=== PATIENT | female | born 1985 | race Caucasian/White ===

== ENCOUNTER 2016-10-06 07:18 | Inpatient (IN) | payer BC ==
[2016-10-06] MEDS ORDERED: CARBOPROST TROMETHAMINE 250 MCG/ML 1 ML AMP IM PRN (08:31)
[2016-10-06] MEDS ORDERED: LIDOCAINE 1% (PF) 10 MG/ML (30 ML SDV) SQ PRN (08:31)
[2016-10-06] MEDS ORDERED: TERBUTALINE 1 MG/ML VIAL SQ PRN (08:31)
[2016-10-06] MEDS ORDERED: OXYTOCIN 10 UNIT/ML 1 ML VIAL IM PRN (08:31)
[2016-10-06] MEDS ORDERED: METHYLERGONOVINE 0.2 MG/ML 1 ML AMP IM PRN (08:31)
[2016-10-06] MEDS ORDERED: BUTORPHANOL 1 MG/ML 1 ML VIAL IV PRN (08:35)
--- NOTE | 2016-10-06 08:42 | P.HPOB ---
History of Present Illness H&P Date: 10/06/16 Chief Complaint: 38-5/7 weeks, spontaneous rupture of membranes The patient is a 30-year-old 1 para 0 admitted at 38-5/7 weeks as established by last menstrual period and confirmed by seven-week ultrasound. She is admitted with documented spontaneous rupture of membranes of clear fluid and all signs reassuring. She currently feels only mild cramping and no significant contractions. Her has been uncomplicated. She does have a history of one nonfunctioning kidney for which she follows with nephrology and has had normal laboratory testing throughout the . She is also known to be rubella nonimmune. Group B strep status is negative. Obstetrical history 1 para 0 with current statistics listed above. EDC of 10/15/2016 was established by last menstrual period and confirmed by seven-week ultrasound. Laboratory workup demonstrates a blood type of O+ with a negative antibody screen. Rubella status is nonimmune. Remainder of the laboratory workup was within normal limits. Second trimester Glucola was elevated but followed up with a normal three-hour glucose tolerance test group B strep status is negative. Gynecologic history is unremarkable with no history of any infections to include STDs. Review of Systems Review of systems is confined to history of present illness. Past Medical History History of Any Multi-Drug Resistant Organisms: None Reported Smoking Status: Never smoker Medications and Allergies Home Medications Medication Instructions Recorded Confirmed Type Pnv with Ca,No.72/Iron/FA 1 each PO DAILY 07/18/16 10/06/16 History [ Plus Tablet] Ferrous Sulfate [Slow Fe] 1 tab PO WEEKLY 10/06/16 10/06/16 History Allergies Allergy/AdvReac Type Severity Reaction Status Date / Time No Known Allergies Allergy Verified 10/06/16 08:11 Exam - Vital Signs Vital signs: Intake and Output 10/05/16 10/06/16 10/06/16 22:59 06:59 14:59 Other: Weight 91.172 kg Patient Weight 10/07/16 06:59 Weight 91.172 kg In general, this is a well-developed, well-nourished white female in no acute distress. Her heart has a regular rhythm and rate without murmur. Her lungs are clear to auscultation bilaterally in all salas. Her abdomen is gravid, nondistended, has normal active bowel sounds, is soft, nontender, and without any palpable masses aside from the uterine fundus. Her extremities are without any cyanosis, clubbing, or significant edema and are nontender to palpation bilaterally. Digital cervical examination performed by the nursing staff demonstrates her cervix to be only fingertip dilated, approximately 70% effaced , with the vertex in presentation at -3 station. Bedside ultrasound confirms vertex presentation. Assessment and Plan (1) Spontaneous rupture of amniotic membranes Status: Acute (2) Rubella non-immune status, antepartum Status: Acute Plan: The patient is admitted for active management of labor. She has requested to wait for Pitocin augmentation as her parents are in route from their home in [place]. Have discussed with she and her that should no contractions commenced within the next 1-2 hours, she should be augmented with Pitocin. She will continue to have close maternal and surveillance and expectant management will be practiced. She is a good candidate for either IV or epidural analgesia, whichever she may choose.
[2016-10-06] MEDS: LACTATED RINGERS 1,000 ML IV SCH ×4 (09:00→21:59)
[2016-10-06 09:13] LABS: Basophils % (A) 0 %; Eosinophils # (A) 0.1 k/uL (0-0.7); Eosinophils % (A) 1 %; HCT 40.8 % (34.0-46.0); HDW 2.69; HGB 14.1 gm/dL (11.4-16.0); Luc # (Auto) 0.21; Luc % (Auto) 2; Lymphocytes # (A) 1.6 k/uL (1.0-4.8); Lymphocytes % (A) 16 %; MCH 31.6 pg (25.0-35.0); MCHC 34.5 g/dL (31.0-37.0); MCV 91.8 fL (80.0-100.0); Mean Platelet Volume 9.9; Monocytes # (A) 0.4 k/uL (0-1.0); Monocytes % (A) 4 %; Neutrophils # (A) 7.6 k/uL (1.3-7.7); Neutrophils % (A) 77 %; RBC 4.45 m/uL (3.80-5.40); RDW 13.6 % (11.5-15.5); WBC 9.9 k/uL (3.8-10.6); WBC (Perox) 10.18
[2016-10-06] MEDS: OXYTOCIN 30 UNITS/500 ML NS 30 UNIT in SALINE 1 500ML.BAG IV SCH (10:40)
[2016-10-06 11:21] VITALS: BMI 32.4
[2016-10-06] MEDS ORDERED: PENICILLIN G POTASSIUM 5,000,000 UNIT in DEXTROSE 5% IN WATER 100 ML IV STA ×2 (17:41)
[2016-10-06] MEDS ORDERED: BUPIVACAINE (PF) 0.25% 30 ML VIAL ONE (18:22)
[2016-10-06] MEDS ORDERED: SODIUM CHLORIDE 0.9% 100 ML BAG ONE (18:22)
[2016-10-06] MEDS ORDERED: fentaNYL (PF) 50 MCG/ML 5 ML AMP ONE (18:22)
[2016-10-07] MEDS ORDERED: ACETAMINOPHEN TAB 325 MG TAB PO PRN (00:25)
[2016-10-07] MEDS ORDERED: HYDROCORTISONE 2.5% RECTAL CREAM 30 GM TUBE RECTAL PRN (00:25)
[2016-10-07] MEDS ORDERED: diphenhydrAMINE 50 MG/ML 1 ML VIAL IVP PRN ×2 (00:25)
[2016-10-07] MEDS ORDERED: diphenhydrAMINE 50 MG CAP PO PRN (00:25)
[2016-10-07] MEDS ORDERED: Acetaminophen-Codeine 300-30mg TAB PO PRN (00:25)
[2016-10-07] MEDS ORDERED: LANOLIN CREAM 5 GM TUBE TOPICAL PRN (00:25)
[2016-10-07] MEDS ORDERED: SIMETHICONE 80 MG CHEWABLE PO PRN (00:25)
[2016-10-07] MEDS ORDERED: diphenhydrAMINE 25 MG CAP PO PRN (00:25)
[2016-10-07] MEDS ORDERED: ZOLPIDEM 5 MG TAB PO PRN (00:25)
[2016-10-07] MEDS ORDERED: BENZOCAINE/MENTHOL SPRAY 1 GM/SPRAY AEROSOL TOPICAL PRN (00:25)
[2016-10-07] MEDS ORDERED: WITCH HAZEL 1 EACH MED..PAD TOPICAL PRN (00:25)
--- NOTE | 2016-10-07 00:25 | P.PROBDLV ---
Vaginal Delivery Note - . Vaginal Delivery Note: Findings: Female in the direct occiput anterior position with Apgars of 9 at 1 minute and 10 at 5 minutes. Weight pending. True knot in the umbilical cord. Intact, three-vessel cord placenta. EBL 150 mL's. Delivery summary: This is a 30-year-old 1 para 0 woman who presented at 38-5/7 weeks gestation with premature rupture of membranes. Following admission Pitocin induction of labor was initiated. She had rupture of membranes at approximately 5:30 AM on 10/06/2016. She had a prolonged latent phase of labor however did on eventually become active. She received an epidural anesthetic. She reached 9 cm at approximately 8 PM. She reached complete cervical dilation by approximately 9 PM and commenced pushing. She had intermittent deep variable and late decelerations throughout the second stage. She did have good return to baseline and good variability throughout. As she was making consistent progress she was allowed to continue pushing. When she did reach she was repositioned, prepped and draped in the dorsal lithotomy position. The perineum was infused with lidocaine. With additional maternal effort the head delivered from the direct occiput anterior position. The nose and mouth were bulb suctioned on the perineum. The anterior followed by the posterior shoulders were then delivered without difficulty and the rest of the infant was delivered onto the field. A true knot was noted in the umbilical cord. The infant was placed on the maternal abdomen and the nose and mouth were further bulb suctioned. Apgars were 9 at 1 minute and 10 at 5 minutes. Weight is pending. The perineum was inspected and a small second-degree perineal laceration was noted. This was repaired with 3- 0 Vicryl suture in the usual fashion. The cord was clamped and cut and an intact, three-vessel cord placenta was delivered after an approximately 13 minute third stage of labor. The vagina was reinspected and no further lacerations were noted. The uterus was massaged and was noted to be firm at the level of the umbilicus. EBL was approximately 150 mL's. The patient received Pitocin following delivery of the placenta. All counts were correct. Both mother and were doing well post delivery in the room.
[2016-10-07 08:16] LABS: Basophils % (A) 0 %; CH 31.9; Eosinophils % (A) 0 %; HCT 39.2 % (34.0-46.0); HDW 2.43; HGB 13.2 gm/dL (11.4-16.0); Luc # (Auto) 0.25; Luc % (Auto) 1; Lymphocytes # (A) 1.7 k/uL (1.0-4.8); Lymphocytes % (A) 9 %; MCH 31.8 pg (25.0-35.0); MCHC 33.8 g/dL (31.0-37.0); MCV 94.2 fL (80.0-100.0); Mean Platelet Volume 9.9; Monocytes # (A) 0.9 k/uL (0-1.0); Monocytes % (A) 4 %; Neutrophils # (A) 17.2 k/uL (1.3-7.7); Neutrophils % (A) 86 %; RBC 4.16 m/uL (3.80-5.40); RDW 13.9 % (11.5-15.5); WBC 20.1 k/uL (3.8-10.6); WBC (Perox) 20.65
[2016-10-07] MEDS: IBUPROFEN 600 MG TAB PO PRN ×2 (09:19→16:07)
[2016-10-07] MEDS: SENNOSIDES-DOCUSATE SODIUM 1 EACH TAB PO SCH ×2 (09:19→20:43)
[2016-10-07] MEDS ORDERED: MEASLES-MUMPS-RUBELLA VACC/PF 12,500 UNIT/0.5 ML VIAL SQ ONE (15:39)
[2016-10-07] MEDS: LACTATED RINGERS 1,000 ML IV SCH (21:52)
[2016-10-07] MEDS: OXYTOCIN 30 UNITS/500 ML NS 30 UNIT in SALINE 1 500ML.BAG IV SCH (21:52)
[2016-10-08] MEDS: IBUPROFEN 600 MG TAB PO PRN ×2 (03:04→15:51)
[2016-10-08 05:58] VITALS: RESP 16
[2016-10-08] MEDS: PENICILLIN G POTASSIUM 2,500,000 UNIT in DEXTROSE 5% IN WATER 100 ML IV SCH ×4 (06:04→06:05)
--- NOTE | 2016-10-08 08:10 | P.PN ---
Subjective Principal diagnosis: day #1. Left well. Moderate lochia rubra. Pain well controlled. Objective - Vital Signs Vital signs: Vital Signs Temp 98.0 F 10/08/16 00:00 Pulse 63 10/08/16 00:00 Resp 16 10/08/16 00:00 BP 102/58 10/08/16 00:00 Pulse Ox Intake & Output 10/07/16 10/08/16 10/08/16 18:59 06:59 18:59 Intake Total 240 Output Total 1000 Balance -760 Intake: Oral 240 Output: Urine 1000 Other: Voiding Method Toilet # Voids 1 2 - Constitutional General appearance: Present: average body habitus, cooperative - EENT Eyes: Present: PERRLA ENT: Present: hearing grossly normal - Neck Thyroid: bilateral: normal size - Respiratory Respiratory: bilateral: CTA - Cardiovascular Rhythm: regular - Gastrointestinal General gastrointestinal: Present: normal bowel sounds - Integumentary Integumentary: Present: normal - Neurologic Neurologic: Present: CNII-XII intact, focal deficits - Musculoskeletal Musculoskeletal: Present: gait normal, strength equal bilaterally - Psychiatric Psychiatric: Present: A&O x's 3, appropriate affect, intact judgment & insight - Labs CBC & Chem 7: 10/07/16 07:25 Labs: Abnormal Lab Results - Last 24 Hours (Table) 10/07/16 Range/Units 07:25 WBC 20.1 H (3.8-10.6) k/uL Neutrophils # 17.2 H (1.3-7.7) k/uL Assessment and Plan Plan: Patient may continue care today likely discharge home tomorrow morning. Time with Patient: Less than 30
[2016-10-09] MEDS: IBUPROFEN 600 MG TAB PO PRN (01:50)
[2016-10-09 09:02] VITALS: BP 115/78; PULSE 66; TEMP 98.3
[2016-10-09] MEDS: SENNOSIDES-DOCUSATE SODIUM 1 EACH TAB PO SCH (09:11)
--- NOTE | 2016-10-09 10:10 | P.DS ---
Providers Date of admission: 10/06/16 08:30 Expected date of discharge: 10/09/16 Attending physician: Osiel Palafox [facility] Hospital Course: This is a 29-year-old white female 1 para 0 EDC 10/15/2016 at 38-5/7 weeks' gestation. Patient presented to the hospital with spontaneous amniorrhexis, clear fluid. Her was essentially unremarkable, rubella status nonimmune. Group B strep cultures were negative. Patient's past medical history is significant for only one functioning kidney. Please see dictated history and physical for details. Patient was admitted, she went on to deliver a liveborn female with scores of 9 and 10 at one and 5 minutes respectively. This was a vaginal delivery, second-degree perineal laceration was easily repaired, estimated blood loss 150 mL's. weighed 6 lbs. 12 oz. or 3050 g. Please see dictated delivery summary for details. This morning the patient and her baby are both doing well. She is voiding, ambulating and passing flatus without difficulty. Vital signs are stable and she is afebrile. Physical exam is normal, breast-feeding is going well, perineal body is clean and dry. Extremities are negative for edema. Fundus is firm and in the midline, symmetric, 18 week size. There is scant lochia rubra. Patient is being discharged home today in very good condition. She will follow- up in the office with Dr. Palafox in 6 weeks. I have asked her to call the office with any fevers shakes or chills, foul smelling or copious lochia, with the passage of large blood clots, with any pain not alleviated by over-the- counter ibuprofen products, or indeed with any concerns. She and her are contemplating her options for contraception and we'll discuss this further in the office. Baby will follow up with team physician as recommended. Meruvax has been received prior to discharge. Patient Condition at Discharge: Good Plan - Discharge Summary Discharge Medication List Pnv with Ca,No.72/Iron/FA [ Plus Tablet] 1 each PO DAILY 07/18/16 [ History] Ferrous Sulfate [Slow Fe] 1 tab PO WEEKLY 10/06/16 [History] Follow up Appointment(s)/Referral(s): Osiel Palafox MD [STAFF PHYSICIAN] - 6 Weeks Discharge Disposition: HOME SELF-CARE
== END 2016-10-09 13:20 | disposition home or self-care (01) | DRG 775 ==
LOC: FBPOP 07:18 → 4FBP 08:30
PROVIDERS: ADMIT Obstetrics & Gynecology; ATTEND Obstetrics & Gynecology
PROC: 3E033VJ Introduction of Other Hormone into Peripheral Vein, Percutaneous Approach (ICD-10-PCS; principal; 2016-10-06)
PROC: 0KQM0ZZ Repair Perineum Muscle, Open Approach (ICD-10-PCS; 2016-10-07)
PROC: 00HU33Z Insertion of Infusion Device into Spinal Canal, Percutaneous Approach (ICD-10-PCS; 2016-10-07)
PROC: 10E0XZZ Delivery of Products of Conception, External Approach (ICD-10-PCS; 2016-10-07)
PROC: 3E0R3CZ (ICD-10-PCS; 2016-10-07)
DX: O42.92 Full-term premature rupture of membranes, unspecified as to length of time between rupture and onset of labor (principal); O76 Abnormality in fetal heart rate and rhythm complicating labor and delivery; Z37.0 Single live birth; O63.0 Prolonged first stage (of labor); O70.1 Second degree perineal laceration during delivery; Z3A.38 38 weeks gestation of pregnancy; O69.2XX0 Labor and delivery complicated by other cord entanglement, with compression, not applicable or unspecified
CPT/HCPCS: 59025; 84112; 85025; 88307; 90707; 99213

== ENCOUNTER → 2018-05-02 | Outpatient (CLI) | payer BC ==
[2018-05-02 14:00] LABS: Appearance,Urine Clear (Clear); Bacteria,Urine Rare /hpf; Bilirubin,Urine Negative (Negative); Blood,Urine Trace (Negative); Color,Urine Yellow; Glucose,Urine (UA) Negative (Negative); Ketones,Urine 1+ (Negative); Leukocyte Esterase,Urine Negative (Negative); Mucus,Urine Rare /hpf; Nitrite,Urine Negative (Negative); PH, Urine 5.5 (5.0-8.0); Protein,Urine Negative (Negative); RBC,Urine 1 /hpf (0-5); Specific Gravity,Urine 1.018 (1.001-1.035); Squamous Epithelial Cell,Urine 2 /hpf (0-4); Urobilinogen,Urine <2.0 mg/dL (<2.0); WBC,Urine <1 /hpf (0-5)
[2018-05-02 14:10] LABS: HGB 13.2 gm/dL (11.4-16.0); MCH 31.2 pg (25.0-35.0); MCHC 33.8 g/dL (31.0-37.0); MCV 92.5 fL (80.0-100.0); Mean Platelet Volume 8.5; Platelet Count 221 k/uL (150-450); RBC 4.22 m/uL (3.80-5.40); RDW 12.6 % (11.5-15.5); WBC 10.1 k/uL (3.8-10.6)
[2018-05-02 18:48] LABS: Albumin 3.9 g/dL (3.80-4.90); Albumin/Globulin Ratio 1.63 (1.20-2.10); Anion Gap 8.3 mmol/L (4.00-12.00); Calcium 9.2 mg/dL (8.7-10.3); Carbon Dioxide 22.7 mmol/L (21.6-31.8); Globulin 2.4 g/dL (2.1-3.7); Phosphorus 3.7 mg/dL (2.4-5.1); Potassium 3.8 mmol/L (3.5-5.5); Total Bilirubin 0.2 mg/dL (0.3-1.2); Total Protein 6.3 g/dL (6.2-8.2)
== END ==
LOC: LABWHC1 13:07
PROVIDERS: ATTEND Internal Medicine Nephrology
DX: D64.9 Anemia, unspecified (principal); N39.0 Urinary tract infection, site not specified; E83.39 Other disorders of phosphorus metabolism
CPT/HCPCS: 36415; 80053; 81001; 84100; 85027

== ENCOUNTER 2018-08-03 14:42 | Outpatient (CLI) | payer BC ==
[2018-08-03 15:36] LABS: Appearance,Urine Clear (Clear); Bacteria,Urine Rare /hpf; Bilirubin,Urine Negative (Negative); Blood,Urine Negative (Negative); Color,Urine Yellow; Glucose,Urine (UA) Negative (Negative); Ketones,Urine Negative (Negative); Leukocyte Esterase,Urine Moderate (Negative); Mucus,Urine Occasional /hpf; Nitrite,Urine Negative (Negative); Protein,Urine Trace (Negative); RBC,Urine 2 /hpf (0-5); Squamous Epithelial Cell,Urine 4 /hpf (0-4); Urobilinogen,Urine <2.0 mg/dL (<2.0); WBC,Urine 3 /hpf (0-5)
[2018-08-03 16:24] LABS: Basophils % (A) 0 %; Eosinophils # (A) 0.1 k/uL (0-0.7); Eosinophils % (A) 1 %; HCT 40.7 % (34.0-46.0); HGB 13.1 gm/dL (11.4-16.0); Lymphocytes # (A) 1.3 k/uL (1.0-4.8); Lymphocytes % (A) 12 %; MCH 30.1 pg (25.0-35.0); MCHC 32.3 g/dL (31.0-37.0); MCV 93.3 fL (80.0-100.0); Mean Platelet Volume 8.1; Monocytes # (A) 0.5 k/uL (0-1.0); Monocytes % (A) 5 %; Neutrophils # (A) 8.6 k/uL (1.3-7.7); Neutrophils % (A) 81 %; Platelet Count 210 k/uL (150-450); RBC 4.36 m/uL (3.80-5.40); RDW 13.3 % (11.5-15.5); WBC 10.6 k/uL (3.8-10.6)
[2018-08-03 16:38] LABS: ALT 26 U/L (9-52); AST 17 U/L (14-36); Blood Urea Nitrogen 9 mg/dL (7-17); LDH 303 U/L (313-618); Uric Acid 5.5 mg/dL (3.7-7.4)
[2018-08-03 17:52] VITALS: BP 117/70; PULSE 90; RESP 16; TEMP 97.7
--- NOTE | 2018-08-07 08:45 | P.MSEPDOC ---
Presenting Problems - Arrival Data Date of Arrival on Unit: 08/03/18 Time of Arrival on Unit: 14:50 Mode of Transport: Ambulatory - Complaint OB-Reason for Admission/Chief Complaint: Pain, Other Comment: pain in upper rt quad. / diahrea all day. no vomiting but nauseated. able to keep water down Medical History - Information : 2 Para: 1 Term: 1 : 0 Abortions: Spontaneous or Elective: 0 Number of Living Children: 1 - Gestational Age Gestational Age by SHERRIE (wks/days): 29 Weeks and 6 Days Review of Systems - Review of Systems Constitutional: No problems Breast: No problems ENT: Nasal congestion Cardiovascular: No problems Respiratory: No problems Gastrointestinal: Diarrhea Genitourinary: No problems Musculoskeletal: No problems Neurological: No problems Skin: No problems Comment: taking sudifed for allergys. has cough last 2 days. Vital Signs - Temperature Temperature: 97.7 F Temperature Source: Temporal Artery Scan - Pulse Right Apical Pulse Rate: 90 Pulse Assessment Method: Automatic Cuff - Respirations Respiratory Rate: 16 Oxygen Delivery Method: Room Air - Blood Pressure Right Arm Blood Pressure: 117/70 Blood Pressure Mean: 85 Blood Pressure Source: Automatic Cuff Medical Screen Scoring (Pre) - Cervical Exam Dilation: Exam Deferred - Uterine Contractions Frequency: N/A - Maternal Vital Signs Maternal Temperature: N/A Signs of Preeclampsia: N/A - Pain Assessment Pain Location and Character: Right, Upper, Abdomen Pain Scale Used: Numeric (1 - 10) Pain Intensity: 5 Pain Description: *Acute, Cramping Pain Frequency: Intermittent Pain Duration: 4 Pain Duration Units: Hours Pain Behavior: Vocalization Pain Aggravating Factors: Activity - Total Score Total Score (Pre): 0 Physician Notification (Pre) - Physician Notified Physician Notified Date: 08/03/18 Physician Notified Time: 15:29 Physician/Practitioner Notifed:: ro Spoke With: dr starr New Order Received: Yes - Notification Comment Comment: lab work and monitoring Disposition - Disposition OB Disposition: Discharge to home, Written follow up instructions reviewed Discharge Date: 08/03/18 Discharge Time: 17:30 I agree with the RN Medical Screening Exam: Yes Risk & Benefit of care provided described in d/c instruction: Yes Diagnosis: 29 WEEKS GESTATION OF
== END 2018-08-03 17:30 | disposition home or self-care (01) ==
LOC: FBPOP 14:42
PROVIDERS: ATTEND Obstetrics & Gynecology
DX: O26.893 Other specified pregnancy related conditions, third trimester (principal); R10.11 Right upper quadrant pain; Z3A.29 29 weeks gestation of pregnancy
CPT/HCPCS: 59025; 81001; 82565; 83615; 84450; 84460; 84520; 84550; 85025; 99213

== ENCOUNTER 2018-10-04 08:07 | Inpatient (IN) | payer BC ==
[2018-10-04] MEDS ORDERED: LIDOCAINE 0.5% (PF) 5 MG/ML (50 ML SDV) SQ PRN (08:52)
[2018-10-04] MEDS ORDERED: METHYLERGONOVINE 0.2 MG/ML 1 ML AMP IM PRN (08:52)
[2018-10-04] MEDS ORDERED: TERBUTALINE 1 MG/ML VIAL SQ PRN (08:52)
[2018-10-04] MEDS ORDERED: OXYTOCIN 10 UNIT/ML 1 ML VIAL IM PRN (08:52)
[2018-10-04] MEDS ORDERED: CARBOPROST TROMETHAMINE 250 MCG/ML 1 ML AMP IM PRN (08:52)
[2018-10-04] MEDS ORDERED: BUTORPHANOL 1 MG/ML 1 ML VIAL IV PRN (08:53)
[2018-10-04] MEDS ORDERED: LACTATED RINGERS 1,000 ML IV SCH (09:00)
[2018-10-04] MEDS ORDERED: OXYTOCIN 30 UNITS/500 ML NS 30 UNIT in SALINE 1 500ML.BAG IV SCH (09:00)
[2018-10-04] MEDS: LACTATED RINGERS 1,000 ML IV SCH ×2 (09:38→13:33)
[2018-10-04 09:48] VITALS: RESP 16; BMI 32.5
[2018-10-04 09:56] LABS: Basophils % (A) 0 %; Eosinophils # (A) 0.1 k/uL (0-0.7); Eosinophils % (A) 1 %; HCT 38.5 % (34.0-46.0); HGB 12.9 gm/dL (11.4-16.0); Lymphocytes # (A) 1.7 k/uL (1.0-4.8); Lymphocytes % (A) 16 %; MCH 30.4 pg (25.0-35.0); MCHC 33.6 g/dL (31.0-37.0); MCV 90.7 fL (80.0-100.0); Mean Platelet Volume 10.7; Monocytes # (A) 0.3 k/uL (0-1.0); Monocytes % (A) 3 %; Neutrophils # (A) 8.4 k/uL (1.3-7.7); Neutrophils % (A) 79 %; Platelet Count 172 k/uL (150-450); RBC 4.25 m/uL (3.80-5.40); RDW 14.8 % (11.5-15.5); WBC 10.6 k/uL (3.8-10.6)
[2018-10-04] MEDS ORDERED: IBUPROFEN 600 MG TAB PO PRN (14:33)
[2018-10-04] MEDS ORDERED: BENZOCAINE/MENTHOL SPRAY 1 GM/SPRAY AEROSOL TOPICAL PRN (14:33)
[2018-10-04] MEDS ORDERED: HYDROCORTISONE 2.5% RECTAL CREAM 30 GM TUBE RECTAL PRN (14:33)
[2018-10-04] MEDS ORDERED: WITCH HAZEL 1 EACH MED..PAD TOPICAL PRN (14:33)
[2018-10-04] MEDS ORDERED: HYDROcodone/APAP 5-325MG 1 EACH TAB PO PRN (14:33)
[2018-10-04] MEDS ORDERED: diphenhydrAMINE 50 MG/ML 1 ML VIAL IVP PRN ×2 (14:33)
[2018-10-04] MEDS ORDERED: SIMETHICONE 80 MG CHEWABLE PO PRN (14:33)
[2018-10-04] MEDS ORDERED: diphenhydrAMINE 50 MG CAP PO PRN (14:33)
[2018-10-04] MEDS ORDERED: HYDROcodone/APAP 7.5-325MG 1 EACH TAB PO PRN (14:33)
[2018-10-04] MEDS ORDERED: LANOLIN CREAM 5 GM TUBE TOPICAL PRN (14:33)
[2018-10-04] MEDS ORDERED: diphenhydrAMINE 25 MG CAP PO PRN (14:33)
[2018-10-04] MEDS ORDERED: ZOLPIDEM 5 MG TAB PO PRN (14:33)
--- NOTE | 2018-10-04 14:38 | P.HPOB ---
History of Present Illness H&P Date: 10/04/18 Chief Complaint: 38-5/7 weeks, spontaneous rupture of membranes, labor The patient is a 32-year-old 2 para 1001 admitted at 38-5/7 weeks as established by last menstrual period and confirmed by 6 week ultrasound. She is admitted with documented spontaneous rupture of membranes of clear fluid. Her has been entirely uncomplicated and group B strep status is negative. On labor and delivery, all signs are reassuring. Obstetrical history: 2 para 1001 with 1 term normal vaginal delivery without complications. Current statistics are listed above. EDC of 10/13/2018 was established by last menstrual period and confirmed by 6 week ultr asound. Laboratory workup done Schutze blood type of O+ with a negative antibody screen. Rubella status is immune. The remainder of laboratory workup was within normal limits. One hour Glucola was normal and group B strep status is negative. Gynecologic history: Unremarkable with no history of any infections to include STDs. Review of Systems Review of systems is confined to history of present illness. Past Medical History Past Medical History: No Reported History Additional Past Medical History / Comment(s): Pt has one nonfunctioning kidney History of Any Multi-Drug Resistant Organisms: None Reported Past Surgical History: Orthopedic Surgery Additional Past Surgical History / Comment(s): Broke elbow at 2 years of age and had pins placed in her elbow. Had wisdome teeth removed at 15 years of age. Past Anesthesia/Blood Transfusion Reactions: No Reported Reaction Past Psychological History: No Psychological Hx Reported Smoking Status: Never smoker Past Alcohol Use History: Occasional Past Drug Use History: None Reported - Past Family History Father Family Medical History: Hypertension Medications and Allergies Home Medications Medication Instructions Recorded Confirmed Type Pnv,Calcium 72/Iron/Folic Acid 1 each PO DAILY 07/18/16 10/04/18 History [ Plus Tablet] Acetaminophen Tab [Tylenol] 2 tablet PO DAILY PRN 08/03/18 10/04/18 History Allergies Allergy/AdvReac Type Severity Reaction Status Date / Time No Known Allergies Allergy Verified 10/04/18 08:34 Exam Vital Signs Temp Pulse Resp BP 10/04/18 09:44 97.0 F L 71 16 131/75 10/04/18 08:35 97.0 F L 71 16 131/77 Intake and Output 04/24/19 04/25/19 04/25/19 22:59 06:59 14:59 Other: Weight 91.626 kg In general, this is a well-developed, well-nourished white female in no acute distress. Her heart has a regular rhythm and rate without murmur. Her lungs are clear to auscultation bilaterally in all slaas. Her abdomen is gravid, nondistended, has normal active bowel sounds, soft, nontender, and without any palpable masses aside from uterine fundus. Her extremities without any cyanosis, clubbing, or edema and are nontender to palpation bilaterally. Dig ital cervical examination demonstrates her cervix be practiced with 3 cm dilated, 70% effaced, the vertex in presentation at -2 station. Spontaneous rupture of membranes is confirmed. Results Result Diagrams: 10/04/18 09:38 Abnormal Lab Results - Last 24 Hours (Table) 10/04/18 Range/Units 09:38 Neutrophils # 8.4 H (1.3-7.7) k/uL Assessment and Plan (1) Active labor at term Current Visit: Yes Status: Acute Code(s): NVG9558 - SNOMED Code(s): 97705159 (2) Spontaneous rupture of amniotic membranes Current Visit: Yes Status: Acute Code(s): XNU0442 - SNOMED Code(s): 513508621 Plan: The patient is admitted for active management of labor. She will have close maternal and surveillance and expectant management will be practiced. Should there be no significant increase in uterine activity within the next 1-2 hours after admission, Pitocin augmentation will be started. She is a good candidate for either IV or epidural analgesia, whichever she may choose.
--- NOTE | 2018-10-04 14:40 | P.PROBDLV ---
Vaginal Delivery Note - . Vaginal Delivery Note: The patient is a 32-year-old 2 para 1001 admitted at 38-5/7 weeks by good dating parameters. She is admitted with documented spontaneous rupture of membranes and all signs reassuring. Her has been entirely uncomplicated and group B strep status is negative. On labor and delivery, she made progress on her own into the active phase of labor at which time she had an epidural catheter placed for analgesia. She progressed very quickly through the active phase of labor to complete and +1 station. She pushed over the course of approximately 4 contractions to a normal spontaneous vaginal delivery of a viable 6 lbs. 13 oz. baby boy with Apgars of 9 at 1 minute and 9 at 5 minutes delivered in the right occiput anterior position. The placenta was delivered spontaneously, intact, and grossly normal with a grossly normal three-vessel cord inserted approximately 2-3 cm from the margin of the placental disc. There was a moderate amount of calcifications in the parenchyma. There was a small second-degree midline perineal laceration noted over the site of a previous laceration or episiotomy scar which was repaired in standard fashion using 3-0 chromic catgut without difficulty. Estimated blood loss for the case is approximately 200 mL. There were no complications. All sponge, instrument, and needle counts were correct. Both mother and infant are resting comfortably in recovery.
[2018-10-04] MEDS ORDERED: OXYTOCIN 20 UNITS/1000 ML NS 1,000 ML IV SCH (14:45)
[2018-10-04] MEDS: ACETAMINOPHEN TAB 325 MG TAB PO PRN (20:10)
[2018-10-04] MEDS: SENNOSIDES-DOCUSATE SODIUM 1 EACH TAB PO SCH (20:10)
[2018-10-05] MEDS ORDERED: ROPIVACAINE 100 MG, fentaNYL (PF) 200 MCG in SODIUM CHLORIDE 0.9% 76 ML EPIDURAL ONE (06:49)
[2018-10-05] MEDS: ACETAMINOPHEN TAB 325 MG TAB PO PRN ×2 (08:31→17:56)
[2018-10-05] MEDS: SENNOSIDES-DOCUSATE SODIUM 1 EACH TAB PO SCH ×2 (08:32→19:43)
--- NOTE | 2018-10-05 09:51 | P.PNOBGVD ---
Subjective - Subjective Patient reports: Reports appetite normal, Reports voiding normally, Reports pain well controlled, Reports ambulating normally : doing well, other (Has not yet voided.) Objective - Latest Vital Signs Latest vital signs: Vital Signs Temp Pulse Resp BP 10/04/18 23:54 98.4 F 69 16 99/60 10/04/18 20:00 98.4 F 75 16 120/72 10/04/18 16:00 98.3 F 72 16 118/68 10/04/18 15:48 81 16 122/58 10/04/18 15:18 80 16 125/56 10/04/18 15:03 83 16 124/60 10/04/18 14:48 90 16 129/60 10/04/18 14:33 79 16 121/68 10/04/18 14:18 98.0 F 89 16 116/57 Intake and Output 10/04/18 10/05/18 10/05/18 22:59 06:59 14:59 Other: # Voids 1 2 - Exam Extremities: Present: normal Abdomen: Present: normal appearance, soft Uterus: Present: normal, firm (Uterine fundus is tonic and nontender around the umbilicus.) - Labs Labs: Abnormal Lab Results - Last 24 Hours (Table) 10/04/18 Range/Units 09:38 Neutrophils # 8.4 H (1.3-7.7) k/uL Assessment and Plan (1) Active labor at term Current Visit: Yes Status: Acute Code(s): FOP1649 - SNOMED Code(s): 47447632 (2) Spontaneous rupture of amniotic membranes Current Visit: Yes Status: Acute Code(s): QLI2461 - SNOMED Code(s): 534220145 (3) Normal spontaneous vaginal delivery Current Visit: Yes Status: Acute Code(s): O80 - ENCOUNTER FOR FULL-TERM UNCOMPLICATED DELIVERY SNOMED Code(s): 41725886 Plan: As the infant has not yet voided, we will delay circumcision until tomorrow. As result both mother and will stay for another 24 hours. I do anticipate discharge home tomorrow pending occasions. Continue routine care.
--- NOTE | 2018-10-05 09:58 | P.MSEPDOC ---
Presenting Problems - Arrival Data Date of Arrival on Unit: 10/04/18 Time of Arrival on Unit: 08:00 Mode of Transport: Ambulatory - Complaint OB-Reason for Admission/Chief Complaint: Rule Out SROM Medical History - Information : 2 Para: 1 Number of Living Children: 1 - Gestational Age Gestational Age by SHERRIE (wks/days): 38 Weeks and 5 Days Review of Systems - Review of Systems Constitutional: No problems Breast: No problems ENT: No problems Cardiovascular: No problems Respiratory: No problems Gastrointestinal: No problems Genitourinary: No problems Musculoskeletal: No problems Neurological: No problems Skin: No problems Vital Signs - Temperature Temperature: 98.4 F Temperature Source: Oral - Pulse Right Sitting Brachial Pulse Rate: 69 Pulse Assessment Method: Automatic Cuff - Respirations Respiratory Rate: 16 Oxygen Delivery Method: Room Air - Blood Pressure Right Arm Sitting Blood Pressure: 99/60 Blood Pressure Mean: 73 Blood Pressure Source: Automatic Cuff Medical Screen Scoring (Pre) - Cervical Exam Dilation: 1-3 cm = 1 Effacement: More than 50% = 2 Membranes: Ruptured = 3 - Uterine Contractions Frequency: > 5 minutes apart = 1 Duration: > 40 seconds = 2 Intensity: N/A - Maternal Vital Signs Maternal Temperature: N/A Maternal Blood Pressure: N/A Signs of Preeclampsia: N/A Maternal Respirations: N/A - Assessment Baseline FHR: 130 Heart Rate - NICHD Category: Category I (Normal) = 0 NST: Reactive Position: N/A Station: N/A - Total Score Total Score (Pre): 9 - Level of Risk Level of Risk: Medium (6-9) Physician Notification (Pre) - Physician Notified Physician Notified Date: 10/04/18 Physician Notified Time: 08:35 Physician/Practitioner Notifed:: Dr Palafox Spoke With: Dr Palafox New Order Received: Yes (admit pt for labor) Disposition - Disposition OB Disposition: Admit I agree with the RN Medical Screening Exam: Yes Risk & Benefit of care provided described in d/c instruction: Yes Diagnosis: ENCOUNTER FOR FULL-TERM UNCOMPLICATED DELIVERY
[2018-10-06] MEDS: ACETAMINOPHEN TAB 325 MG TAB PO PRN (06:34)
[2018-10-06] MEDS: SENNOSIDES-DOCUSATE SODIUM 1 EACH TAB PO SCH (08:04)
[2018-10-06 08:21] VITALS: BP 135/83; PULSE 71
[2018-10-06 10:23] VITALS: TEMP 97.9
--- NOTE | 2018-10-06 11:04 | P.DS ---
Providers Date of admission: 10/04/18 08:59 Expected date of discharge: 10/06/18 Attending physician: Osiel Palafox Primary care physician: Stated None - Discharge Diagnosis(es) (1) Active labor at term Current Visit: Yes Status: Acute (2) Spontaneous rupture of amniotic membranes Current Visit: Yes Status: Acute (3) Normal spontaneous vaginal delivery Current Visit: Yes Status: Acute Hospital Course: The patient is a 32-year-old 2 para 1001 admitted at 38-5/7 weeks by good dating parameters perches admitted with spontaneous rupture of membranes for clear fluid. Her was uncomplicated and group B strep status is negative. On labor and delivery, she made good progress through the early active phase of labor and had an epidural catheter placed for analgesia. She ultimately progressed to complete and then pushed over the course of approximately 4 contractions to a normal spontaneous vaginal delivery of a viable 6 lbs. 13 oz. baby boy with Apgars of 9 at 1 minute and 9 at 5 minutes. Her course was unremarkable with vital signs remaining stable and her temperature was afebrile throughout. She was deemed stable for discharge on day #2 and was discharged home to follow-up in the office in 6 weeks' time routinely. Discharge instructions included calling for any significantly increased bleeding or foul-smelling lochia, significant fever or abdominal pain, perineal complaints, breast complaints, or anything else that concerned her. She was additionally instructed to have nothing in the vagina for at least 6 weeks time to include intercourse. She understood her instructions and agrees to follow up as noted above. Discharge medications included continued vitamins as she has opted to breast-feed. She was otherwise to use [id number] analgesic pain medications as needed. Maternal blood type is O+ and rubella status is immune. Procedures: #1. Epidural analgesia #2. Normal spontaneous vaginal delivery #3. Repair of perineal laceration Patient Condition at Discharge: Good Plan - Discharge Summary New Discharge Prescriptions: No Action Pnv,Calcium 72/Iron/Folic Acid [ Plus Tablet] 1 each PO DAILY Acetaminophen Tab [Tylenol] 2 tablet PO DAILY PRN PRN Reason: Pain Scale 1 To 3 Discharge Medication List Pnv,Calcium 72/Iron/Folic Acid [ Plus Tablet] 1 each PO DAILY 07/18/16 [History] Acetaminophen Tab [Tylenol] 2 tablet PO DAILY PRN 08/03/18 [History] Follow up Appointment(s)/Referral(s): Osiel Palafox MD [STAFF PHYSICIAN] - 6 Weeks Discharge Disposition: HOME SELF-CARE
== END 2018-10-06 12:15 | disposition home or self-care (01) | DRG 807 ==
LOC: FBPOP 08:07 → 4FBP 08:59
PROVIDERS: ADMIT Obstetrics & Gynecology; ATTEND Obstetrics & Gynecology
PROC: 10E0XZZ Delivery of Products of Conception, External Approach (ICD-10-PCS; principal; 2018-10-04)
PROC: 0KQM0ZZ Repair Perineum Muscle, Open Approach (ICD-10-PCS; 2018-10-04)
PROC: 00HU33Z Insertion of Infusion Device into Spinal Canal, Percutaneous Approach (ICD-10-PCS; 2018-10-04)
PROC: 3E0R3BZ Introduction of Anesthetic Agent into Spinal Canal, Percutaneous Approach (ICD-10-PCS; 2018-10-04)
DX: O70.1 Second degree perineal laceration during delivery (principal); Z37.0 Single live birth; Z3A.38 38 weeks gestation of pregnancy; Z79.899 Other long term (current) drug therapy; N28.9 Disorder of kidney and ureter, unspecified; Z87.81 Personal history of (healed) traumatic fracture; Z82.49 Family history of ischemic heart disease and other diseases of the circulatory system
CPT/HCPCS: 59025; 84112; 85025; 86850; 86900; 86901; 99213

== ENCOUNTER → 2021-11-09 | Outpatient (CLI) | payer BC ==
--- NOTE | 2021-11-10 08:03 | MM ---
Reason for Exam: Screening (asymptomatic). Baseline mammogram. Patient History: Menarche at age 12. First Full-Term at age 30. Late child-bearing (after 29). Patient used Hormonal Contraceptives for 15 years. Paternal grandmother had breast cancer. Last menstrual period: 10/24/2021 Risk Values: Sarah Beth 5 year model risk: 0.5%. NCI Lifetime model risk: 13.8%. Film Views: Bilateral CC views were taken. Bilateral MLO views were taken. Prior Study Comparison: Patient's first Mammogram. No prior studies available for comparison. Tissue Density: The breast tissue is extremely dense which could obscure a lesion on mammography. Findings: Analyzed By CAD. There is a asymmetric density in the upper central margin of the left breast posteriorly. No suspicious calcifications or architectural distortion. Benign-appearing lymph nodes in the axilla. Overall Assessment: Incomplete: need additional imaging evaluation, BI-RAD 0 Management: Special View Mammogram of both breasts. If lesion persists on supplemental views, image directed ultrasound is recommended. [facility] will attempt to contact patient to return for supplemental views and ultrasound if indicated. Bilateral in 1 Year . A clinical breast exam by your physician is recommended on an annual basis and results should be correlated with mammographic findings. Electronically signed and approved by: Dayday Sy M.D. Radiologis
== END | disposition home or self-care (01) ==
LOC: RADMAMWWP 07:36
PROVIDERS: ATTEND Obstetrics & Gynecology
DX: Z08 Encounter for follow-up examination after completed treatment for malignant neoplasm (principal); Z80.3 Family history of malignant neoplasm of breast
CPT/HCPCS: 77067

== ENCOUNTER → 2021-11-11 | Outpatient (CLI) | payer BC ==
--- NOTE | 2021-11-11 09:40 | MM ---
Reason for Exam: Additional evaluation requested from abnormal screening. Last screening mammogram was performed less than 1 month ago. Patient History: Menarche at age 12. First Full-Term at age 30. Late child-bearing (after 29). Patient has history of breast feeding. Patient used Hormonal Contraceptives for 15 years. Paternal grandmother had breast cancer under age 50. Last menstrual period: 11/03/2021 Risk Values: Sarah Beth 5 year model risk: 0.5%. NCI Lifetime model risk: 13.8%. Prior Study Comparison: 11/09/2021 Bilateral MG screening mammo w CAD, [facility]. Tissue Density: Left: The breast tissue is extremely dense which could obscure a lesion on mammography. Findings: Analyzed By CAD. Focal asymmetric prominent tissue on additional views. No persistent distinct suspicious lesion. Overall Assessment: Negative, BI-RAD 1 Management: Screening Mammogram of both breasts at age 39. A clinical breast exam by your physician is recommended on an annual basis and results should be correlated with mammographic findings. This exam should not preclude additional follow-up of suspicious palpable abnormalities. Results were given to the patient verbally at the time of exam. Electronically signed and approved by: Lalo Glasgow M.D.
== END | disposition home or self-care (01) ==
LOC: RADMAMWWP 08:55
PROVIDERS: ATTEND Obstetrics & Gynecology
DX: R92.8 Other abnormal and inconclusive findings on diagnostic imaging of breast (principal)
CPT/HCPCS: 77061; 77065